=== PATIENT | male | born 1955 | race American Indian/Alaskan Native ===

== ENCOUNTER 2017-08-21 10:01 | Day surgery (SDC) | payer OTHER ==
[2017-08-21] MEDS ORDERED: XYLOCAINE MPF 2% ONE (10:30)
--- NOTE | 2017-08-21 10:50 | Anesthesia Consultation ---
Anesthesia Consult and Med Hx Date of service: 08/21/17 - Airway Anesthetic Teeth Evaluation: Poor (multiple missing ) ROM Head & Neck: Adequate Mental/Hyoid Distance: Adequate Mallampati Class: Class II Intubation Access Assessment: Probably Good - Pulmonary Exam CTA: Yes - Cardiac Exam Cardiac Exam: RRR - Pre-Operative Health Status ASA Pre-Surgery Classification: ASA3 Proposed Anesthetic Plan: MAC - Pulmonary SOB: Yes (on exertion) - Cardiovascular System Hx Hypertension: Yes (did not take medications today) Hx Coronary Artery Disease: Yes (cabg*3 2005 with history of CHF) Hx Heart Attack/AMI: Yes - Central Nervous System Hx Neuromuscular Disorder: Yes (generalized weakness both legs) - Endocrine Hx Non-Insulin Dependent Diabetes: Yes
--- NOTE | 2017-08-21 10:52 | Anesthesia Day of Surgery ---
Anesthesia Day of Surgery - Day of Surgery Patient Examined: Yes Patient H&P Reviewed: Yes Patient is NPO: Yes Beta Blockers: No (did not take medications today. last dose 2 days ago)
[2017-08-21] MEDS ORDERED: NACL 0.9% 1000 ML 1,000 ML IV SCH (11:00)
[2017-08-21] MEDS ORDERED: DIPRIVAN 10 MG/ML IV ONE ×2 (12:46→12:47)
[2017-08-21] MEDS ORDERED: NORMODYNE IV ONE (12:53)
--- NOTE | 2017-08-21 13:22 | Discharge Summary ---
Short Stay Discharge Plan Activity: advance as tolerated Weight Bearing Status: Weight Bear as Tolerated Diet: regular Follow up with: CYNTHIA MERIDA MD [Primary Care Provider] - 7 Days
--- NOTE | 2017-08-21 13:22 | Operative Report ---
Operative Report Operative Report: Date of procedure: 08/21/2017 Procedure: Colonoscopy with Multiple rectal polyp ablations and Hot Biopsy Polypectomy of ileocecal valve polyp. Attending physician: Arnold Jacobson MD Animal Warden: Arnold Jacobson MD Indication: Patient is a 62-year-old male who presents for screening colonoscopy. This colonoscopy serves to evaluate patient so that treatment may be directed based on the findings. Consent: Informed consent was obtained after advising the patient and family regarding nature of this procedure, its indications, potential benefits as well as possible complications including but not limited to bleeding perforation and adverse reaction to medication, infection as well as other cardiopulmonary complications. An informed written and verbal consent was then obtained after due opportunity was provided for questions and answers. Monitoring: Patient was monitored continuously with pulse oximetry and electrocardiographic recordings as well as blood pressure recordings. Vital signs remained stable throughout this procedure with no untoward events. Preoperative assessment: Patient was assessed immediately prior to this procedure for capacity to tolerate monitored anesthesia care and moderate sedation as well as general anesthesia. Patient's ASA classification is 2, Mallampati class is 2, Hyomental distance is 3. Instrument: Degordian video colonoscope Medications: Propofol given intravenously in divided doses. For details please refer to anesthesia records. Description of procedure: Patient was placed in the left lateral decubitus position after achieving sedation, a digital rectal examination was performed following which the colonoscope was introduced into the anal verge and advanced to the cecum which was identified by the cecal valve, the appendiceal orifice, as well as by the cecal strap and direct transillumination. The colonoscope was subsequently withdrawn with careful inspection of all mucosal surfaces. Patient tolerated this procedure well and was subsequently taken to the recovery room. The following findings were noted. Findings: Patient had a diminutive sessile polyp in the ileocecal valve which measured 5-6 mm. The polyp was removed by hot biopsy polypectomy and retrieved. There were multiple diminutive flat polyps in the rectum which were all ablated. The rest of the colon to the cecum was normal. On the retroflex view at the anal verge, patient had internal hemorrhoids. Impression: Diminutive ileocecal valve polyp status post hot biopsy polypectomy. Multiple diminutive rectal polyps status post ablation. Internal hemorrhoids. Plan: Follow pathology report. High-fiber diet. Repeat colonoscopy in 5 years.
--- NOTE | 2017-08-21 14:19 | Post Anesthesia Evaluation ---
- Post Anesthesia Evaluation Patient Participated: Yes Airway Patent: Yes Stable Respiratory Function: Yes Temp > 96.8F: Yes Pain Manageable: Yes Adequeate Hydration: Yes Anesthesia Complications: No
[2017-08-21 15:26] VITALS: BP 162/88
== END 2017-08-21 10:02 | disposition home or self-care (01) ==
LOC: GIO 10:01
PROVIDERS: ATTEND Internal Medicine Gastroenterology
DX: Z12.11 Encounter for screening for malignant neoplasm of colon (principal); K62.1 Rectal polyp; K64.8 Other hemorrhoids; E11.9 Type 2 diabetes mellitus without complications; I25.2 Old myocardial infarction; I10 Essential (primary) hypertension; I25.10 Atherosclerotic heart disease of native coronary artery without angina pectoris; Z95.1 Presence of aortocoronary bypass graft; Z79.82 Long term (current) use of aspirin; Z79.84 Long term (current) use of oral hypoglycemic drugs
CPT/HCPCS: 45384; 45388; 82962; 88305; J2704; J7030